=== PATIENT | male | born 1960 | race American Indian/Alaskan Native ===

== ENCOUNTER 2016-09-10 07:45 | Outpatient (CLI) | payer OTHER ==
--- NOTE | 2016-09-10 08:54 | Cat Scan Report ---
CT ABDOMEN WITHOUT CONTRAST HISTORY: Abdominal pain, pancreatitis. TECHNIQUE: Helical CT following oral contrast. Sagittal and coronal reformatted images. FINDINGS: No comparison. The pancreas appears normal size, contour and attenuation on noncontrast CT. No inflammatory changes, mass or pseudocyst is appreciated. The biliary system is unremarkable. No calcified gallstones are appreciated. No biliary dilatation. The liver and spleen are normal size and contour. 1 cm cyst high left hepatic lobe is noted. The kidneys, adrenal glands, aorta and visualized bowel loops are within normal limits. Heart size is normal. The lung bases are clear. No suspicious bony lesion. No evidence for ascites, free air, inflammation or bulky adenopathy. IMPRESSION: Essentially unremarkable CT of the abdomen and pelvis. No obvious findings of pancreatitis on noncontrast CT.
== END 2016-09-10 07:46 | disposition home or self-care (01) ==
LOC: CT 07:45
PROVIDERS: ATTEND Internal Medicine
DX: K85.90 Acute pancreatitis without necrosis or infection, unspecified (principal)
CPT/HCPCS: 74150